=== PATIENT | female | born 1965 | race Caucasian/White ===

== ENCOUNTER → 2020-10-09 06:43 | Outpatient (CLI) | payer OTHER, SELFPAY ==
[2020-09-18 11:43] VITALS: BMI 21.6
--- NOTE | 2020-10-09 06:45 | ECHOCS_ITS ---
Version 2 Reason For Study: ARRHYTHMIA Procedure This was a 2D Doppler, Color Flow transthoracic echocardiogram. Contrast injection was performed. The study was technically difficult. Exam performed in department. Left Ventricle Normal left ventricle. Left ventricular systolic function is normal. The estimated ejection fraction is 60 %. Stage 1 diastolic dysfunction. No regional wall motion abnormalities noted. Right Ventricle Normal RV size. ICD or pacer leads identified within the right ventricle. Normal systolic function. Atria Normal left atrium. Normal right atrium. Mitral Valve Normal mitral valve. Tricuspid Valve Normal tricuspid valve. Mild tricuspid valve insufficiency. Pulmonary artery systolic pressure is 30 mmHg. Aortic Valve Normal aortic valve. Trisinus/trileaflet aortic valve. Pulmonic Valve Normal pulmonic valve. Great Vessels Normal aortic root. The pulmonary artery is normal size. Normal inferior vena cava. Pericardium/Pleural No pericardial effusion. Medication [id number] given slow IV push to enhance endocardial definition. MMode/2D Measurements & Calculations LVIDd: 4.3 cm IVSd: 0.61 cm Ao root diam: 2.8 cm LVIDs: 2.8 cm LVPWd: 0.62 cm RVDd: 2.6 cm FS: 34.7 % LAV(MOD-bp): 33.3 ml LVAd ap4: 27.6 cm2 LVAd ap2: 23.8 cm2 LAV(MOD-bp) Indexed: 21.3 ml/m2 LVLd ap4: 7.9 cm LVLd ap2: 7.3 cm LAV(MOD-sp2): 31.5 ml EDV(MOD-sp4): 79.6 ml EDV(MOD-sp2): 66.0 ml LAV(MOD-sp4): 34.0 ml EDV(sp4-el): 82.5 ml EDV(sp2-el): 66.0 ml LVAs ap4: 14.9 cm2 LVAs ap2: 13.1 cm2 LVLs ap4: 6.2 cm LVLs ap2: 5.3 cm ESV(MOD-sp4): 29.3 ml ESV(MOD-sp2): 26.6 ml ESV(sp4-el): 30.4 ml ESV(sp2-el): 27.4 ml EF(MOD-sp4): 63.2 % EF(MOD-sp2): 59.7 % EF(sp4-el): 63.1 % SV(MOD-sp4): 50.3 ml SV(MOD-sp2): 39.4 ml SV(sp4-el): 52.0 ml LA A4 area: 15.6 cm2 LA dimension(2D): 2.4 cm RA A4 area: 13.7 cm2 Time Measurements MV dec time: 0.22 sec Doppler Measurements & Calculations MV E max grabiel: 47.0 cm/sec Lat Peak E' Grabiel: 6.9 cm/sec Med Peak E' Grabiel: 4.3 cm/sec MV A max grabiel: 71.8 cm/sec E/E' lat: 6.8 E/E' med: 11.0 MV E/A: 0.65 Ao V2 max: 106.6 cm/sec LV V1 max: 95.8 cm/sec TR max grabiel: 256.6 cm/sec Ao max P.6 mmHg LV V1 max P.7 mmHg TR max P.4 mmHg ECHO/Echo Complete W/ Contrast Interpretation Summary Normal left ventricle. Left ventricular systolic function is normal. The estimated ejection fraction is 60 %. Stage 1 diastolic dysfunction. Contrast injection was performed. Ordering Physician: Abiodun Machado Referring Physician: ABI AYERS Performed By: Matilde Srivastava, RDCS, RVT
--- NOTE | 2020-10-09 12:27 | STRESSREP ---
Stress Test Report Pharmacologic myocardial perfusion stress test. Next 55-year-old lady with a history of high-grade AV block. Stress protocol: Resting EKG demonstrates atrial pacing with a rate of 62 bpm. Resting blood pressure is 124/90 mmHg. 0.4 mg of regadenoson was infused per usual protocol followed by rapid intravenous saline flush injection continuous EKG monitoring was performed. The maximum heart rate attained was 96 bpm which was 58% of max infected heart rate the maximum workload was one metabolic equivalent. At rest there were no ST or T wave changes noted to suggest abnormal flow reserve and at peak infusion nonspecific ST changes were noted. The peak blood pressure was 132/80 mmHg. Myocardial perfusion protocol. 10.6 mCi of technetium 99m sestamibi was injected at rest. 0.4 mg of regadenoson was infused per usual protocol. At peak infusion 32.3 mCi of technetium 99m sestamibi was injected stress images were obtained stress and rest images were reconstructed and compared in the short axis vertical long and horizontal long axis. Gated images were also obtained. Perfusion SPECT analysis: Review of the stress images demonstrate normal uptake of tracer noted in all areas of the myocardium. The resting images similarly demonstrate normal uptake of tracer noted in all areas of the myocardium. No areas of reversibility are noted suggest ischemia and no previous infarct is noted. Gated SPECT analysis: The gated ejection fraction is 69%. Conclusion: Normal pharmacologic myocardial perfusion stress test. Preserved ejection fraction.
== END ==
PROVIDERS: PCP Family Medicine; Referring Provider Internal Medicine Cardiovascular Disease; Visit Provider Internal Medicine Cardiovascular Disease
DX: I44.39 Other atrioventricular block (principal); R55 Syncope and collapse; Z95.0 Presence of cardiac pacemaker
CPT/HCPCS: 78452; 93017; 93306; A9500; Q9957; A4216; C8929; J2785; J3490

== ENCOUNTER 2022-06-07 13:46 | Emergency (ER) | payer OTHER, SELFPAY ==
[2022-06-07 13:47] VITALS: BP 138/98; PULSE 87; RESP 18; TEMP 37.3; O2SAT 100; BMI 20.9
--- NOTE | 2022-06-07 14:32 | CT_ITS ---
STUDY: CT BRAIN WITHOUT CONTRAST REASON FOR EXAM: Female, 57 years old. Head injury due to a syncopal episode. Headaches and dizziness. RADIATION DOSAGE (If Supplied By Facility): CTDIvol = ( 44.99 ) mGy, DLP = ( 745.49 ) mGycm TECHNIQUE: Transaxial CT imaging of the brain was performed without administration of intravenous contrast material. Individualized dose optimization techniques were used for this CT. COMPARISON: No relevant priors. FINDINGS: Normal soft tissue structures. Normal calvarium. Normal size ventricles and extra-axial spaces for the patient''s age. Normal white matter tracts of the cerebral hemispheres. Normal basal ganglia and thalami. Normal brainstem. Normal cerebellum. There is no intracranial hemorrhage. There are no findings of an acute ischemic infarction. Normal visualized paranasal sinuses. CT/Brain/Head without Contrast IMPRESSION: Normal unenhanced CT scan of the brain. Electronically Signed: Alex Casanova MD at 15:14 EDT ,
--- NOTE | 2022-06-07 14:32 | CT_ITS ---
STUDY: CT CERVICAL SPINE WITHOUT CONTRAST REASON FOR EXAM: Female, 57 years old. Cervical pain following a fall due to syncopal episode. RADIATION DOSAGE (If Supplied By Facility): CTDIvol = ( 12.34 ) mGy, DLP = ( 994.41 ) mGycm TECHNIQUE: High resolution transaxial imaging was performed without contrast material. Sagittal and coronal images were reconstructed. Individualized dose optimization techniques were used for this CT. COMPARISON: None FINDINGS: Normal craniovertebral junction. Normal anterior atlantoaxial articulation. Normal odontoid process. Normal cervical lordosis. Normal vertebral bodies and posterior osseous elements. C2-3: Normal endplates. Normal disc height and morphology. Normal central canal and intervertebral neuroforamina. C3-4: Normal endplates. Normal disc height and morphology. Normal central canal and intervertebral neuroforamina. C4-5: Normal endplates. Normal disc height and morphology. Normal central canal and intervertebral neuroforamina. C5-6: Normal endplates. Normal disc height and morphology. Normal central canal and intervertebral neuroforamina. C6-7: Mild degree of disc space narrowing. Uncovertebral arthrosis. No significant stenosis seen. C7-T1: Normal endplates. Normal disc height and morphology. Normal central canal and intervertebral neuroforamina. Scarring at the lung apices. CT/Spine Cervical without Contras IMPRESSION: Mild degree of disc space narrowing and degenerative changes at the C6-C7 level. Scarring at the lung apices. Electronically Signed: Alex Casanova MD at 15:16 EDT ,
--- NOTE | 2022-06-07 14:34 | EX.ED.GENINJ ---
HPI History of Present Illness Chief Complaint: Head Injury Narrative Narrative: 57-year-old female past medical history of pacemaker, frequent syncope and collapse secondary to low blood pressure presents with headache and head injury that she sustained 2 to 3 weeks ago. She states she had one of her typical episodes, but fell on the bathroom floor which was tiled. Since then, she has had headache all over that is unrelenting over the last 2 to 3 weeks. She denies any photophobia or phonophobia. No nausea or vomiting. No numbness or tingling of her arms or legs. She does not take blood thinners. She is also had left-sided neck pain yesterday evening. She has taken a lot of [id number] medications without relief of her symptoms. She has not contacted her primary care physician but presents for evaluation of her continued headache. [facility] Medical History Cardiac arrest Fracture, sternum closed Herpes simplex Hypothyroidism Syncope and collapse Home Medications acetaminophen 325 mg tablet 650 mg PO Q6H PRN 09/14/20 [History Last Taken Unknown] levothyroxine 112 mcg tablet 112 mcg PO DAILY 09/14/20 [History Last Taken Unknown] valacyclovir 500 mg tablet 500 mg PO DAILY PRN 09/18/20 [History Last Taken Unknown] midodrine 2.5 mg tablet 2.5 mg PO BID #60 tabs 05/09/22 [Rx Last Taken Unknown] Allergy/AdvReac Type Severity Reaction Status Date / Time No Known Allergies Allergy Verified 06/07/22 13:49 Family History Grandmother CAD (coronary artery disease), Onset Age: 82 CABG Diabetes Mother Hypertension Thyroid disorder Father Hypertension CVA (cerebral vascular accident) Carotid artery disease Aunt Cancer Thyroid Uncle Cancer Thyroid Surgical History Presence of cardiac pacemaker (09/04/20) Social History Smoking Status: Never smoker alcohol intake: never substance use type: does not use caffeine: Yes Type: carbonated beverages and tea ROS ROS ED ROS Narrative Constitutional: No fever, no chills. HEENT: No sore throat. Left-sided neck pain. No loss of vision. No rhinorrhea. Cardiovascular: No chest pain. No palpitations. No pedal edema. Respiratory: Occasional cough, no shortness of breath. Abdominal: No abdominal pain. No nausea. No vomiting. Genitourinary: No dysuria. No hematuria. Musculoskeletal: No myalgias. No arthralgias. Neurologic: Positive headaches for the last 2 to 3 weeks. No dizziness. No lightheadedness. Skin: No rash. No change in color. Psychiatric: No depression. No anxiety. EXAM Physical Exam Narrative Exam Narrative: Afebrile. Vital signs noted. HEENT: Normocephalic. Atraumatic. PERRL, EOMI. Neck soft and supple. No point tenderness or step off. Cardiovascular: Regular rate and rhythm. No murmurs, rubs, or gallops appreciated. Respiratory: No tachypnea. Lungs clear to auscultation bilaterally. Occasional cough on examination. Gastrointestinal: Abdomen soft, nontender, with normoactive bowel sounds. No rebound or guarding. Neurological: Awake. Alert. Oriented x3. Nonfocal, nonlateralizing. Patellar reflexes symmetric and equal. Skin: No rash. Normal color. No pallor. Musculoskeletal: No pedal edema. Full range of motion extremities. Const Vital Signs: 06/07/22 13:47 Temperature 99.1 F Temperature Source Temporal Pulse Rate 87 Respiratory Rate 18 Blood Pressure 138/98 H Blood Pressure Mean 111 Pulse Ox 100 Oxygen Delivery Method Room Air MDM MDM MDM Narrative Medical decision making narrative: I do feel that the patient is having prolonged concussion type symptoms. Given her trauma, I will obtain CT imaging of the brain to look for skull fracture, and of the C-spine to make sure that she does not have a cervical neck fracture, although given her tenderness on the left side of her neck and reported pain I do feel its more paraspinal cervical muscular strain and pain. She did have slightly elevated temperature of 99.1, given that she had a cough on examination she will be swabbed for COVID and influenza. I reviewed her CT imaging reports, CT of the brain shows no evidence of an acute fracture or bleed. CT of the cervical spine shows mild degree of disc space narrowing and degenerative changes at C6-C7, but no acute fracture. Her respiratory swab is positive for COVID-19. This may be the cause of her continued headache. Her pulse ox is 100% on room air without evidence of hypoxia. At this point in time, I feel she can be discharged for symptomatic treatment. She will follow-up with her primary care physician. Return instructions to the emergency department were reviewed. Disposition is discharged home in stable condition. Radiography Diagnostic Testing: Clinical Impression(s) from Imaging Studies Brain CT 06/07/22 14:32 IMPRESSION: Normal unenhanced CT scan of the brain. Electronically Signed: Alex Casanova MD at 15:14 EDT , Cervical Spine CT 06/07/22 14:32 IMPRESSION: Mild degree of disc space narrowing and degenerative changes at the C6-C7 level. Scarring at the lung apices. Electronically Signed: Alex Casanova MD at 15:16 EDT , Discharge Plan Triage Chief Complaint: Head Injury Other Complaint: Headache ED Provider: Obie Herman Dx/Rx/DC Orders Clinical Impression: Headache, COVID, Post-concussion headache Instructions: Coronavirus Disease 2019 (COVID-19): Caring for Yourself or Others, ED Headache Unspecified Prescriptions: No Action acetaminophen 325 mg tablet 650 mg PO Q6H PRN levothyroxine 112 mcg tablet 112 mcg PO DAILY valacyclovir 500 mg tablet 500 mg PO DAILY PRN midodrine 2.5 mg tablet 2.5 mg PO BID Qty: 60 0RF Primary Care Provider: Cristobal Estrella Referrals: Cristobal Estrella MD [Primary Care Provider] - 1 Week if not improving Disposition Disposition: Home, Self Care
== END 2022-06-07 16:10 | disposition home or self-care (01) ==
PROVIDERS: Emergency Provider Emergency Medicine; PCP Family Medicine; Visit Provider Emergency Medicine
DX: U07.1 COVID-19 (principal); G44.309 Post-traumatic headache, unspecified, not intractable; Z95.0 Presence of cardiac pacemaker
CPT/HCPCS: 70450; 72125; 87428; 99282